=== PATIENT | female | born 1960 | race Caucasian/White ===

== ENCOUNTER 2017-10-30 13:14 | Inpatient (IN) | payer BC ==
[~2017-10-30] VITALS: Ht 165.1 cm; Wt 67.0 kg
[2017-10-30] VITALS (10 sets, daily range): BP systolic 84–131; BP diastolic 41–73
[2017-10-30 14:09] LABS: HEMATOCRIT 35.1 % (36.0-46.0); HEMOGLOBIN 11.8 G/DL (11.9-15.5); MCH 29.6 PG (29.0-34.0); MCHC 33.6 G/DL (30.0-36.0); MCV 88.2 FL (83-99); PLATELET COUNT 331 K/uL (156-360); RBC DIS.WIDTH-CV 16.7 % (11.8-14.6); RBC DIS.WIDTH-SD 54.1 % (39-53); RED BLOOD COUNT 3.98 M/uL (3.80-5.20); WHITE BLOOD COUNT 9.8 K/uL (4.1-10.2)
[2017-10-30 14:25] LABS: ALBUMIN 4.5 g/dL (3.2-4.8)
[2017-10-30 14:26] LABS: CHLORIDE 96 mEq/L (99-109); POTASSIUM 3.6 mEq/L (3.7-5.4); SODIUM 135 mEq/L (136-147)
[2017-10-30 14:28] LABS: GLUCOSE 85 mg/dL (70-99)
[2017-10-30 14:30] LABS: TOTAL BILIRUBIN 0.2 mg/dL (0.0-1.0)
[2017-10-30 14:31] LABS: ALKALINE PHOSPHATASE 77 IU/L (3-129); CREATININE 13.9 mg/dL (0.6-1.3); GFR ESTIMATE (CALCULATED) 3 mL/min/
[2017-10-30 14:33] LABS: AST (GOT) 11 IU/L (2-34); UREA NITROGEN (BUN) 78 mg/dL (9-23)
[2017-10-30 14:34] LABS: ALT (GPT) 13 IU/L (3-49)
[2017-10-30 14:36] LABS: TROP-I INTERPRETATION NEGATIVE; TROPONIN-I 0.01 ng/mL (0.0-0.30)
[2017-10-30 16:27] LABS: INTER. NORMALIZED RATIO 1.1
[2017-10-30 16:30] LABS: PTT 32.9 SEC (25-37)
[2017-10-30 16:35] LABS: BASOPHIL (%) 0.3 % (0-1); EOSINOPHIL (%) 0.3 % (0-5); HEMATOCRIT 28.2 % (36.0-46.0); IMMATURE GRANULOCYTE (%) 0.3 % (0.0-0.7); LYMPHOCYTE (%) 10.2 % (15-42); LYMPHOCYTE COUNT 0.7 K/uL (1.0-2.8); MCH 29.7 PG (29.0-34.0); MCHC 33.7 G/DL (30.0-36.0); MCV 88.1 FL (83-99); MONOCYTE (%) 11.2 % (3-12); MONOCYTE COUNT 0.8 K/uL (0-0.8); NEUTROPHIL (%) 77.7 % (45-76); NEUTROPHIL COUNT 5.4 K/uL (1.8-6.4); PLATELET COUNT 245 K/uL (156-360); RBC DIS.WIDTH-CV 16.8 % (11.8-14.6); RBC DIS.WIDTH-SD 54.7 % (39-53); WHITE BLOOD COUNT 6.9 K/uL (4.1-10.2)
[2017-10-30 16:36] LABS: HEMOGLOBIN 9.5 G/DL (11.9-15.5)
[2017-10-30] MEDS ORDERED: WELLBUTRIN XL300 MG PO (17:01)
[2017-10-30] MEDS ORDERED: GLUCOPHAGE500 MG PO (17:01)
[2017-10-30] MEDS ORDERED: ZESTORETIC 20-1 EAC1 PO (17:02)
[2017-10-30] MEDS ORDERED: CRESTOR40 MG PO (17:03)
[2017-10-30] MEDS ORDERED: ZETIA10 MG PO (17:03)
[2017-10-30] MEDS ORDERED: NIACIN ER500 MG PO (17:04)
[2017-10-30] MEDS ORDERED: ZOLOFT100 MG PO (17:04)
[2017-10-30] MEDS ORDERED: ADVIL,NUPRIN,M200 MG PO (17:05)
[2017-10-30] MEDS ORDERED: LO-DOSE ASPIRIN81 M1 PO (17:05)
[2017-10-30 21:20] LABS: CHLORIDE 105 MEQ/L (99-109); CREATININE 10.1 MG/DL (0.6-1.3); GFR ESTIMATE (CALCULATED) 4 mL/min/; GLUCOSE 133 mg/dL (70-99); SODIUM 136 MEQ/L (136-147); UREA NITROGEN (BUN) 75 mg/dL (9-23)
[2017-10-30 22:09] LABS: APPEARANCE SL.HAZY ((CLEAR)); BILIRUBIN NEGATIVE; BLOOD SMALL; COLOR YELLOW ((YELLOW)); GLUCOSE (STRIP) NEGATIVE; KETONES NEGATIVE; LEUKOCYTES NEGATIVE; NITRITE NEGATIVE; PROTEIN (STRIP) 100; SPECIFIC GRAVITY 1.009 (1.000-1.030); UROBILINOGEN 0.2 MG/DL (0.2-1.0)
[2017-10-30 22:18] LABS: BACTERIA RARE /HPF; EPITHELIAL CELLS RARE /HPF; MUCUS TRACE /LPF; RED BLOOD CELLS 0-5 /HPF (0-5); WHITE BLOOD CELLS 0-5 /HPF (0-5)
[2017-10-30 22:34] LABS: UR CREATININE CONCENTRATION 124.8 MG/DL
[2017-10-31] VITALS (19 sets, daily range): BP systolic 84–117; BP diastolic 49–70
[2017-10-31 05:18] LABS: BASOPHIL (%) 0.3 % (0-1); EOSINOPHIL (%) 0.7 % (0-5); EOSINOPHIL COUNT 0.1 K/uL (0-0.3); HEMATOCRIT 29.6 % (36.0-46.0); IMMATURE GRANULOCYTE (%) 0.3 % (0.0-0.7); LYMPHOCYTE (%) 10.1 % (15-42); LYMPHOCYTE COUNT 0.7 K/uL (1.0-2.8); MCHC 33.8 G/DL (30.0-36.0); MCV 85.8 FL (83-99); MONOCYTE (%) 13.3 % (3-12); MONOCYTE COUNT 0.9 K/uL (0-0.8); NEUTROPHIL (%) 75.3 % (45-76); NEUTROPHIL COUNT 5.3 K/uL (1.8-6.4); PLATELET COUNT 286 K/uL (156-360); RBC DIS.WIDTH-CV 16.2 % (11.8-14.6); RBC DIS.WIDTH-SD 51.3 % (39-53); RED BLOOD COUNT 3.45 M/uL (3.80-5.20)
[2017-10-31 06:16] LABS: ALBUMIN 3.2 G/DL (3.2-4.8); CHLORIDE 109 MEQ/L (99-109); GLUCOSE 153 mg/dL (70-99); MAGNESIUM 1.7 mg/dl (1.3-2.7); PHOSPHORUS 6.2 mg/dL (2.5-4.9); POTASSIUM 2.7 MEQ/L (3.7-5.4); SODIUM 135 MEQ/L (136-147); UREA NITROGEN (BUN) 68 mg/dL (9-23); URIC ACID 12.3 mg/dL (3.1-9.2)
[2017-10-31 06:36] LABS: CREATININE 7.7 MG/DL (0.6-1.3); GFR ESTIMATE (CALCULATED) 6 mL/min/
[2017-10-31 12:35] LABS: ALBUMIN 2.9 G/DL (3.2-4.8); ALKALINE PHOSPHATASE 52 IU/L (3-129); ALT (GPT) 13 IU/L (3-49); AST (GOT) 15 IU/L (2-34); CHLORIDE 111 MEQ/L (99-109); GLUCOSE 127 mg/dL (70-99); POTASSIUM 2.8 MEQ/L (3.7-5.4); SODIUM 137 MEQ/L (136-147); TOTAL BILIRUBIN 0.2 MG/DL (0.0-1.0); TOTAL PROTEIN 5.3 G/DL (6.4-8.3); UREA NITROGEN (BUN) 56 mg/dL (9-23)
[2017-10-31 12:36] LABS: CREATININE 4.6 MG/DL (0.6-1.3); GFR ESTIMATE (CALCULATED) 10 mL/min/
[2017-10-31 16:19] LABS: ALBUMIN 3.1 G/DL (3.2-4.8); ALKALINE PHOSPHATASE 50 IU/L (3-129); ALT (GPT) 12 IU/L (3-49); AST (GOT) 16 IU/L (2-34); CHLORIDE 106 MEQ/L (99-109); CREATININE 3.4 MG/DL (0.6-1.3); GFR ESTIMATE (CALCULATED) 15 mL/min/; GLUCOSE 128 mg/dL (70-99); POTASSIUM 2.8 MEQ/L (3.7-5.4); SODIUM 135 MEQ/L (136-147); TOTAL BILIRUBIN 0.2 MG/DL (0.0-1.0); TOTAL PROTEIN 5.7 G/DL (6.4-8.3); UREA NITROGEN (BUN) 52 mg/dL (9-23)
[2017-10-31 20:25] LABS: CHLORIDE 107 MEQ/L (99-109); GFR ESTIMATE (CALCULATED) 24 mL/min/; GLUCOSE 125 mg/dL (70-99); POTASSIUM 2.7 MEQ/L (3.7-5.4); SODIUM 139 MEQ/L (136-147); UREA NITROGEN (BUN) 44 mg/dL (9-23)
[2017-10-31 20:30] LABS: CREATININE 2.2 MG/DL (0.6-1.3)
[2017-11-01 05:30] VITALS: BP 97/55
[2017-11-01 06:32] LABS: ALBUMIN 2.9 G/DL (3.2-4.8); CHLORIDE 103 MEQ/L (99-109); GLUCOSE 120 mg/dL (70-99); IRON 97 MCG/DL (35-150); POTASSIUM 2.9 MEQ/L (3.7-5.4); SODIUM 143 MEQ/L (136-147); TRANSFERRIN (TIBC) 207.7 mg/dL (215-380); TRANSFERRIN SATUR. 47 % (20-55); UREA NITROGEN (BUN) 33 mg/dL (9-23)
[2017-11-01 06:36] LABS: CREATININE 1.2 MG/DL (0.6-1.3); GFR ESTIMATE (CALCULATED) 49 mL/min/; PHOSPHORUS 1.4 mg/dL (2.5-4.9)
[2017-11-01 07:45] VITALS: BP 92/60
[2017-11-01 11:00] VITALS: BP 96/62
[2017-11-01 13:08] LABS: HEMOGLOBIN A1c (GLYCOHEMOGLOB) 6.1 % (Below 5.7)
[2017-11-01 16:00] VITALS: BP 98/62
[2017-11-01 19:10] VITALS: BP 136/72
[2017-11-01 21:03] LABS: CHLORIDE 104 MEQ/L (99-109); CREATININE 0.8 MG/DL (0.6-1.3); GFR ESTIMATE (CALCULATED) > 59 mL/min/; GLUCOSE 125 mg/dL (70-99); POTASSIUM 3.3 MEQ/L (3.7-5.4); SODIUM 139 MEQ/L (136-147); UREA NITROGEN (BUN) 22 mg/dL (9-23)
[2017-11-01 22:50] VITALS: BP 108/54
[2017-11-02 03:30] VITALS: BP 101/52
[2017-11-02 05:15] LABS: BASOPHIL (%) 0.4 % (0-1); EOSINOPHIL (%) 3.9 % (0-5); EOSINOPHIL COUNT 0.3 K/uL (0-0.3); HEMOGLOBIN 8.6 G/DL (11.9-15.5); IMMATURE GRANULOCYTE (%) 0.3 % (0.0-0.7); LYMPHOCYTE (%) 30.9 % (15-42); LYMPHOCYTE COUNT 2.2 K/uL (1.0-2.8); MCH 28.9 PG (29.0-34.0); MCHC 33.1 G/DL (30.0-36.0); MCV 87.2 FL (83-99); MONOCYTE (%) 12.7 % (3-12); MONOCYTE COUNT 0.9 K/uL (0-0.8); NEUTROPHIL (%) 51.8 % (45-76); NEUTROPHIL COUNT 3.6 K/uL (1.8-6.4); PLATELET COUNT 238 K/uL (156-360); RED BLOOD COUNT 2.98 M/uL (3.80-5.20)
[2017-11-02 05:49] LABS: ALBUMIN 3.1 G/DL (3.2-4.8); CHLORIDE 106 MEQ/L (99-109); CREATININE 0.8 MG/DL (0.6-1.3); GFR ESTIMATE (CALCULATED) > 59 mL/min/; GLUCOSE 168 mg/dL (70-99); PHOSPHORUS 1.8 mg/dL (2.5-4.9); POTASSIUM 3.5 MEQ/L (3.7-5.4); SODIUM 142 MEQ/L (136-147); UREA NITROGEN (BUN) 19 mg/dL (9-23)
[2017-11-02 05:54] LABS: MAGNESIUM 1.2 mg/dl (1.3-2.7)
[2017-11-02 08:00] VITALS: BP 93/54
[2017-11-02 12:04] VITALS: BP 95/51
[2017-11-02 14:14] LABS: HEMATOCRIT 29.9 % (36.0-46.0); HEMOGLOBIN 9.9 G/DL (11.9-15.5); IMM.RETIC FRACTION 11.4 % (3-19); MCH 29.4 PG (29.0-34.0); MCHC 33.1 G/DL (30.0-36.0); MCV 88.7 FL (83-99); PLATELET COUNT 263 K/uL (156-360); RBC DIS.WIDTH-CV 17.2 % (11.8-14.6); RED BLOOD COUNT 3.37 M/uL (3.80-5.20); RETIC HGB EQUIVALENT 32.5 (28-36); RETICULOCYTE COUNT 1.3 % (0.5-1.8); WHITE BLOOD COUNT 6.9 K/uL (4.1-10.2)
[2017-11-02 16:12] VITALS: BP 102/61
[2017-11-02 21:10] VITALS: BP 125/78
== END 2017-11-02 21:10 | disposition home or self-care (01) | DRG 683 ==
LOC: EME 13:14 → 4EAST 15:37 → ENRESERV 15:37 → EDOF 15:37 → ENRESERV 15:40 → 4WEST 17:37 → ENRESERV 10-31 16:50 → 4EAST 10-31 17:45
PROVIDERS: Emergency Medicine Emergency Medical Services; Internal Medicine; Internal Medicine Critical Care Medicine; Internal Medicine Nephrology; Specialist; Student in an Organized Health Care Education/Training Program; Surgery
PROC: 02HV33Z Insertion of Infusion Device into Superior Vena Cava, Percutaneous Approach (ICD-10-PCS; principal; 2017-10-30)
DX: N17.9 Acute kidney failure, unspecified (principal); I95.9 Hypotension, unspecified; E87.2 Acidosis; E11.51 Type 2 diabetes mellitus with diabetic peripheral angiopathy without gangrene; E83.42 Hypomagnesemia; E83.39 Other disorders of phosphorus metabolism; K52.9 Noninfective gastroenteritis and colitis, unspecified; I10 Essential (primary) hypertension; F32.9 Major depressive disorder, single episode, unspecified; E78.00 Pure hypercholesterolemia, unspecified; F17.210 Nicotine dependence, cigarettes, uncomplicated; E86.0 Dehydration; D64.9 Anemia, unspecified; E78.5 Hyperlipidemia, unspecified; I70.0 Atherosclerosis of aorta; G89.29 Other chronic pain; M54.5 Low back pain; E87.6 Hypokalemia; I70.203 Unspecified atherosclerosis of native arteries of extremities, bilateral legs; Z79.84 Long term (current) use of oral hypoglycemic drugs
CPT/HCPCS: 71045; 74176; 76770; 80048; 80048 91; 80053; 80069; 81003; 82272; 82436; 82570; 82948; 83036; 83540; 83605; 83735; 84100; 84300; 84466; 84484; 84550; 85025; 85027; 85046; 85610; 85730; 87040; 87493; 87506; 87641; 93005; 99281; 99285; A6214; C1751; J0780; J1644; J1815; J2543; J3475; J3480; J7030; J7040; J7050; J7070; J7120; S0030